=== PATIENT | male | born 1995 | race Caucasian/White ===

== ENCOUNTER 2017-08-23 19:27 | Emergency (ER) | payer OTHER | END 2017-08-23 21:43 | disposition home or self-care (01) | LOC: ERS 19:27 | DX: F10.129 Alcohol abuse with intoxication, unspecified (principal); J45.909 Unspecified asthma, uncomplicated | CPT/HCPCS: 36415; 80307; 99284 ==

== ENCOUNTER 2017-12-28 19:29 | Emergency (ER) | payer OTHER | END 2017-12-28 20:30 | disposition home or self-care (01) | LOC: SCSER 19:29 | DX: J03.90 Acute tonsillitis, unspecified (principal); J45.909 Unspecified asthma, uncomplicated | CPT/HCPCS: 87081; 87430; 99283 ==

== ENCOUNTER 2019-03-15 23:11 | Emergency (ER) | payer OTHER | END 2019-03-16 00:35 | disposition home or self-care (01) | LOC: ERS 23:11 | DX: S39.011A Strain of muscle, fascia and tendon of abdomen, initial encounter (principal); F17.210 Nicotine dependence, cigarettes, uncomplicated; X50.0XXA Overexertion from strenuous movement or load, initial encounter | CPT/HCPCS: 99283 ==